=== PATIENT | female | born 1970 | race Caucasian/White ===

== ENCOUNTER 2022-08-15 17:38 | Emergency (ER) | payer BC ==
[~2022-08-15] VITALS: Ht 157 cm; Wt 74.0 kg
[2022-08-15] MEDS ORDERED: NS IV 1000 ML 1,000 ML IV STA (18:13)
[2022-08-15] MEDS ORDERED: ONDANSETRON 4 MG/2 ML (SDV) Z0FRAN IVP ONE (18:15)
--- NOTE | 2022-08-15 18:38 | ED Abdominal Pain ---
General Chief Complaint: Abdominal/GI Problems Stated Complaint: VOMITING/LEFT SHOULDER/BACK/ABD PAIN Nursing Triage Note: ARRIVED VIA AMB TO ROOM 09 WITH COMPLAINTS OF N/V SINCE THURSDAY. ALSO COMPLAINS OF BACK AND NECK PAIN. SENT OVER FROM [facility]. WAS NEG FOR FLU AND COVID TODAY. Source of Information: Patient Exam Limitations: No Limitations History of Present Illness Date Seen by Provider: Aug 15, 2022 Time Seen by Provider: 18:00 Initial Comments 52-year-old female presents to the emergency department today for abdominal pain. She states symptoms started about 3:00 on Thursday and are associated with nausea vomiting and diarrhea. She states she is unable to keep anything down since that time except for small sips of fluids. She denies any fevers but has had chills and sweats. No sick contacts. Her abdominal pain is epigastric with radiation to her mid back. No aggravating or alleviating factors. It has been constant with waves of sharper pain. No changes in bladder habits. No vaginal symptoms. She has had her gallbladder removed. She has been coughing up phlegm per her report. Allergies and Home Medications Allergies Coded Allergies: Sulfa (Sulfonamide Antibiotics) (Verified Allergy, Severe, HIVES, 08/15/22) Patient Home Medication List Home Medication List Reviewed: Yes Review of Systems Review of Systems Constitutional: chills EENTM: No Symptoms Reported Respiratory: Cough Cardiovascular: No Symptoms Reported Gastrointestinal: Abdominal Pain, Diarrhea, Nausea, Vomiting Genitourinary: No Symptoms Reported Musculoskeletal: no symptoms reported Skin: no symptoms reported Psychiatric/Neurological: No Symptoms Reported Endocrine: No Symptoms Reported Hematologic/Lymphatic: No Symptoms Reported Past Wjdauul-Tvfwqj-Ngiana Hx Patient Social History Tobacco Use?: Yes Smoking Status: Current Everyday Smoker Substance use?: No Alcohol Use?: Yes Alcohol Frequency: Once in a while Immunizations Up To Date Second COVID19 Vaccination Beltran: UNKNOWN 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 oz. kg; 30.00 BMI Method: General Appearance: WD/WN, no apparent distress HEENT: normal ENT inspection, pharynx normal Neck: non-tender, supple Respiratory: chest non-tender, lungs clear, normal breath sounds, no respiratory distress Cardiovascular: regular rate, rhythm, no murmur Gastrointestinal: normal bowel sounds, soft, no organomegaly, tenderness (Mild epigastric tenderness to palpation.) Extremities: normal range of motion, non-tender, normal inspection, no pedal edema, no calf tenderness, normal capillary refill Back: normal inspection, no vertebral tenderness Neurologic/Psychiatric: alert, normal mood/affect, oriented x 3 Skin: normal color, warm/dry Lymphatic: no adenopathy Progress/Results/Core Measures Results/Orders Lab Results Laboratory Tests Test 08/15/22 18:00 08/15/22 18:35 Range/Units White Blood Count 10.9 4.3-11.0 10^3/uL Red Blood Count 5.01 3.80-5.11 10^6/uL Hemoglobin 15.5 11.5-16.0 g/dL Hematocrit 45 35-52 % Mean Corpuscular Volume 91 80-99 fL Mean Corpuscular Hemoglobin 31 25-34 pg Mean Corpuscular Hemoglobin Concent 34 32-36 g/dL Red Cell Distribution Width 13.2 10.0-14.5 % Platelet Count 198 130-400 10^3/uL Mean Platelet Volume 11.9 9.0-12.2 fL Immature Granulocyte % (Auto) 1 % Neutrophils (%) (Auto) 85 H 42-75 % Lymphocytes (%) (Auto) 7 L 12-44 % Monocytes (%) (Auto) 7 0-12 % Eosinophils (%) (Auto) 0 0-10 % Basophils (%) (Auto) 0 0-10 % Neutrophils # (Auto) 9.3 H 1.8-7.8 10^3/uL Lymphocytes # (Auto) 0.8 L 1.0-4.0 10^3/uL Monocytes # (Auto) 0.7 0.0-1.0 10^3/uL Eosinophils # (Auto) 0.0 0.0-0.3 10^3/uL Basophils # (Auto) 0.0 0.0-0.1 10^3/uL Immature Granulocyte # (Auto) 0.1 0.0-0.1 10^3/uL Sodium Level 134 L 135-145 MMOL/L Potassium Level 2.9 L 3.6-5.0 MMOL/L Chloride Level 96 L 98-107 MMOL/L Carbon Dioxide Level 24 21-32 MMOL/L Anion Gap 14 5-14 MMOL/L Blood Urea Nitrogen 21 H 7-18 MG/DL Creatinine 0.76 0.60-1.30 MG/DL Estimat Glomerular Filtration Rate 93 BUN/Creatinine Ratio 28 Glucose Level 120 H 70-105 MG/DL Calcium Level 9.5 8.5-10.1 MG/DL Corrected Calcium 9.7 8.5-10.1 MG/DL Total Bilirubin 1.4 H 0.1-1.0 MG/DL Aspartate Amino Transf (AST/SGOT) 90 H 5-34 U/L Alanine Aminotransferase (ALT/SGPT) 78 H 0-55 U/L Alkaline Phosphatase 95 40-136 U/L Total Protein 7.5 6.4-8.2 GM/DL Albumin 3.7 3.2-4.5 GM/DL Lipase 7 L 8-78 U/L Urine Color DARK YELLOW Urine Clarity CLOUDY Urine pH 6.0 5-9 Urine Specific [place] 1.025 H 1.016-1.022 Urine Protein 2+ H NEGATIVE Urine Glucose (UA) TRACE H NEGATIVE Urine Ketones 1+ H NEGATIVE Urine Nitrite NEGATIVE NEGATIVE Urine Bilirubin 2+ H NEGATIVE Urine Urobilinogen 2.0 < = 1.0 MG/DL Urine Leukocyte Esterase NEGATIVE NEGATIVE Urine RBC (Auto) TRACE-I H NEGATIVE Urine RBC 0-2 /HPF Urine WBC 0-2 /HPF Urine Crystals NONE /LPF Urine Bacteria MODERATE H /HPF Urine Casts NONE /LPF Urine Mucus NEGATIVE /LPF Urine Culture Indicated YES My Orders Orders - SHANNON MCLEAN DO Comprehensive Metabolic Panel (08/15/22 18:13) Lipase (08/15/22 18:13) Ua Culture If Indicated (08/15/22 18:13) Cbc With Automated Diff (08/15/22 18:13) Ondansetron Injection (Zofran Injectio (08/15/22 18:15) Ns Iv 1000 Ml (Sodium Chloride 0.9%) (08/15/22 18:13) Chest 1 View, Ap/Pa Only (08/15/22 18:14) Manual Differential (08/15/22 18:00) Ceftriaxone 1 Gm Pre-Mix (Rocephin 1 Gm (08/15/22 19:12) Urine Culture (08/15/22 18:35) Medications Given in ED Current Medications Medications Dose Ordered Sig/Marti Route Start Time Stop Time Status Last Admin Dose Admin Ondansetron HCl 8 mg ONCE ONCE IVP 08/15/22 18:15 08/15/22 18:16 DC 08/15/22 18:30 8 MG Diagnostic Imaging Diagonstic Imaging: Xray Plain Films/CT/US/NM/MRI: chest Comments Left upper lobe infiltrate, likely pneumonia Departure Communication (Admissions) Patient is hemodynamically stable. She has what appears to be a left upper lobe pneumonia on chest x-ray. Likely community-acquired pneumonia. Given IV Rocephin here and discharged on Levaquin. Also given Zofran as needed for nausea. She is comfortable agreeable current plan of care and she is discharged in stable condition. Impression Primary Impression: Community acquired bacterial pneumonia Disposition: HOME, SELF-CARE Condition: Stable Departure-Patient Inst. Patient Instructions: Community-Acquired Pneumonia, Adult (DC) Add. Discharge Instructions: Take the antibiotics as prescribed until they are gone. Increase your fluids at home and rest. Use the nausea medicine but is already under your tongue as needed. Return to the emergency department for any severe concerns. Follow-up with primary doctor for any nonemergent needs All discharge instructions reviewed with patient and/or family. Voiced understanding. Scripts Ondansetron (Ondansetron Odt) 8 Mg Tab.rapdis 8 MG SL Q6H PRN for NAUSEA/VOMITING for 5 Days, #20 TAB Prov: SHANNON MCLEAN DO 08/15/22 Levofloxacin (Levofloxacin) 500 Mg Tablet 500 MG PO DAILY for 7 Days, #7 TAB Prov: SHANNON MCLEAN DO 08/15/22 SHANNON MCLEAN DO Aug 15, 2022 18:38
[2022-08-15 18:46] LABS: BILIRUBIN,URINE 2+ (NEGATIVE); CLARITY,URINE CLOUDY; COLOR,URINE DARK YELLOW; GLUCOSE, URINE (UA) TRACE (NEGATIVE); KETONES,URINE 1+ (NEGATIVE); LEUKOCYTE ESTERASE ,URINE NEGATIVE (NEGATIVE); NITRITE,URINE NEGATIVE (NEGATIVE); PROTEIN,URINE 2+ (NEGATIVE)
--- NOTE | 2022-08-15 18:53 | Diagnostic Imaging Report ---
Chest 1 view, ap/pa only Indication: Left chest pain with cough. Comparison: None available. Findings: Left upper lobe consolidations. Indeterminate left midlung zone nodule opacity. No pleural effusion or pneumothorax. Normal heart size. Impression: 1. Left upper lobe consolidations are likely due to pneumonia. 2. Advise followup PA and lateral chest radiographs in 4 weeks after appropriate medical management to ensure resolution and exclude the possibility of underlying malignancy. Dictated by: Dictated on workstation # [id number]
[2022-08-15 19:05] LABS: BASOPHILS % (AUTO) 0 % (0-10); EOSINOPHILS % (AUTO) 0 % (0-10); HEMATOCRIT 45 % (35-52); HEMOGLOBIN 15.5 g/dL (11.5-16.0); LYMPHOCYTES # (AUTO) 0.8 10^3/uL (1.0-4.0); LYMPHOCYTES % (AUTO) 7 % (12-44); MEAN CORPUSCULAR HEMOGLOBIN 31 pg (25-34); MEAN CORPUSCULAR HGB CONC 34 g/dL (32-36); MEAN CORPUSCULAR VOLUME 91 fL (80-99); MEAN PLATELET VOLUME 11.9 fL (9.0-12.2); MONOCYTES # (AUTO) 0.7 10^3/uL (0.0-1.0); MONOCYTES % (AUTO) 7 % (0-12); NEUTROPHILS # (AUTO) 9.3 10^3/uL (1.8-7.8); NEUTROPHILS % (AUTO) 85 % (42-75); PLATELET COUNT 198 10^3/uL (130-400); WHITE BLOOD COUNT 10.9 10^3/uL (4.3-11.0)
[2022-08-15 19:12] LABS: RBC,URINE 0-2 /HPF; WBC,URINE 0-2 /HPF
[2022-08-15] MEDS ORDERED: cefTRIAXone 1 GM PRE-MIX 50 ML IV STA (19:12)
[2022-08-15 19:13] LABS: BACTERIA,URINE MODERATE /HPF
[2022-08-15 19:19] LABS: ALBUMIN 3.7 GM/DL (3.2-4.5); POTASSIUM 2.9 MMOL/L (3.6-5.0)
[2022-08-15 19:21] LABS: CALCIUM 9.5 MG/DL (8.5-10.1)
[2022-08-15 19:22] LABS: TOTAL PROTEIN 7.5 GM/DL (6.4-8.2)
[2022-08-15 19:24] LABS: BILIRUBIN,TOTAL 1.4 MG/DL (0.1-1.0)
[2022-08-15 19:25] LABS: CREATININE SERUM 0.76 MG/DL (0.60-1.30)
[2022-08-15] MEDS ORDERED: ONDA8TAB13 SL (20:02)
[2022-08-15] MEDS ORDERED: LEVO-55 PO (20:02)
[2022-08-15 20:09] LABS: EOSINOPHILS % (MANUAL) 1 %; LYMPHOCYTES % (MANUAL) 10 %; MONOCYTES % (MANUAL) 4 %; NEUTROPHILS % (MANUAL) 85 %; RBC MORPH NORMAL
[2022-08-15 20:19] VITALS: BP 129/73
== END 2022-08-15 20:20 | disposition home or self-care (01) ==
LOC: ER 17:45
DX: J15.9 Unspecified bacterial pneumonia (principal); R10.13 Epigastric pain; F17.200 Nicotine dependence, unspecified, uncomplicated; Z88.2 Allergy status to sulfonamides
CPT/HCPCS: 36415; 71045; 80053; 81000; 83690; 85007; 85027; 87088